=== PATIENT | female | born 1995 | race Asian ===

== ENCOUNTER 2018-07-18 20:06 | Emergency (ER) | payer OTHER ==
[~2018-07-18] VITALS: Ht 160 cm; Wt 67.6 kg
[2018-07-18 20:14] VITALS: Ht 160 cm; Wt 67.6 kg
[2018-07-18 22:58] VITALS: BP 105/80
== END 2018-07-18 22:58 | disposition home or self-care (01) ==
LOC: ED 20:06
PROC: 0HQKXZZ Repair Right Lower Leg Skin, External Approach (ICD-10-PCS; principal; 2018-07-18)
PROC: 3E0234Z Introduction of Serum, Toxoid and Vaccine into Muscle, Percutaneous Approach (ICD-10-PCS; 2018-07-18)
DX: S81.811A Laceration without foreign body, right lower leg, initial encounter (principal); W26.0XXA Contact with knife, initial encounter; Y92.009 Unspecified place in unspecified non-institutional (private) residence as the place of occurrence of the external cause
CPT/HCPCS: 90715; J2001

== ENCOUNTER 2018-07-21 19:33 | Emergency (ER) | payer OTHER ==
[~2018-07-21] VITALS: Ht 160 cm; Wt 63.5 kg
[2018-07-21 19:35] VITALS: BP 125/69; Ht 160 cm; Wt 63.5 kg
== END 2018-07-21 20:43 | disposition home or self-care (01) ==
LOC: ED 19:33
DX: S81.811D Laceration without foreign body, right lower leg, subsequent encounter (principal); W26.0XXD Contact with knife, subsequent encounter

== ENCOUNTER 2018-07-24 19:12 | Emergency (ER) | payer OTHER ==
[~2018-07-24] VITALS: Ht 160 cm; Wt 65.3 kg
[2018-07-24 19:39] VITALS: Ht 160 cm; Wt 65.3 kg
[2018-07-24 20:41] VITALS: BP 117/74
== END 2018-07-24 20:41 | disposition home or self-care (01) ==
LOC: ED 19:12
DX: S81.811D Laceration without foreign body, right lower leg, subsequent encounter (principal); X58.XXXD Exposure to other specified factors, subsequent encounter